=== PATIENT | female | born 2000 ===

== ENCOUNTER 2019-03-23 07:17 | Emergency (ER) | payer BC ==
--- NOTE | 2019-03-23 07:43 | UC ---
Eye Complaint HPI - HPI Summary HPI Summary: 18-year-old woman comes in with a chief complaint of a right upper eyelid stye started yesterday. She's been using some antibiotic drops that she got from her manufacturing quality manager and chorea from about a year ago and it's not really helping. No fevers or chills no change in vision does not wear contacts. - History of Current Complaint Chief Complaint: UCEye Stated Complaint: EYE ISSUE Time Seen by Provider: 03/23/19 07:35 Hx Last Menstrual Period: 03/09/19 Pain Intensity: 7 - Allergies/Home Medications Allergies/Adverse Reactions: Allergies Allergy/AdvReac Type Severity Reaction Status Date / Time No Known Allergies Allergy Verified 03/23/19 07:32 PMH/Surg Hx/FS Hx/Imm Hx Previously Healthy: Yes - Surgical History Surgery Procedure, Year, and Place: tonsils - Family History Known Family History: Positive: Non-Contributory - Social History Alcohol Use: Occasionally Substance Use Type: None Smoking Status (MU): Current Some Day Smoker Type: eCigarettes Review of Systems All Other Systems Reviewed And Are Negative: Yes Constitutional: Positive: Negative Skin: Positive: Negative Eyes: Positive: Other - SEE HPI ENT: Positive: Negative Respiratory: Positive: Negative Cardiovascular: Positive: Negative Gastrointestinal: Positive: Negative Motor: Positive: Negative Neurovascular: Positive: Negative Musculoskeletal: Positive: Negative Neurological: Positive: Negative Psychological: Positive: Negative Is Patient Immunocompromised?: No Physical Exam Triage Information Reviewed: Yes Appearance: Well-Appearing, No Pain Distress, Well-Nourished Vital Signs: Initial Vital Signs Temp 98.3 F 03/23/19 07:27 Pulse 76 03/23/19 07:27 Resp 12 03/23/19 07:27 BP 110/75 03/23/19 07:27 Pulse Ox 100 03/23/19 07:27 Vital Signs Reviewed: Yes Eyes: Positive: Conjunctiva Clear, Other: - PERRLA EOMI. Right upper eyelid is swollen. There is some crusting debris on the eyelash. ENT: Negative: Nasal congestion Neck: Positive: Supple Respiratory: Positive: No respiratory distress Musculoskeletal: Positive: Strength Intact, ROM Intact Neurological: Positive: Alert, Muscle Tone Normal Psychological: Positive: Age Appropriate Behavior Skin Exam: Normal Eye Complaint Course/Dx - Course Course Of Treatment: Sent a prescription of tobramycin to be used as directed. Patient reports that she has difficulty taking eyedrops and requested by mouth antibiotic and also. Sent and a prescription for amoxicillin. I discussed with the patient warm moist compresses to help to stye drained. If not completely improved follow-up with either ophthalmology here or [facility]. - Differential Dx/Diagnosis Provider Diagnosis: Hordeolum externum right upper eyelid Discharge ED - Sign-Out/Discharge Documenting (check all that apply): Patient Departure All imaging exams completed and their final reports reviewed: No Studies - Discharge Plan Condition: Stable Disposition: HOME Prescriptions: Amoxicillin PO (*) [Amoxicillin 500 MG CAP*] 500 mg PO TID #30 cap Tobramycin 0.3% OPHTH.MADHAV* 1 drop RIGHT EYE Q4H #1 btl Patient Education Materials: [facility] (ED) [facility] [Provider Group] Additional Instructions: FOLLOW UP WITH YOUR PRIMARY CARE DOCTOR OR OPHTHALMOLOGY IF NOT COMPLETELY IMPROVED. GET RECHECKED SOONER IF YOUR CONDITION WORSENS OR ANY QUESTIONS OR CONCERNS. - Billing Disposition and Condition Condition: STABLE Disposition: Home
== END 2019-03-23 07:51 | disposition home or self-care (01) ==
LOC: UCEAST 07:17
DX: H00.011 Hordeolum externum right upper eyelid (principal)
CPT/HCPCS: 99202; G0463